=== PATIENT | female | born 1945 | race Caucasian/White ===

== ENCOUNTER 2021-06-29 05:40 | Day surgery (SDC) | payer MEDICARE, OTHER ==
[~2021-06-29] VITALS: Ht 166.4 cm; Wt 73.5 kg
[2021-06-29 06:22] VITALS: BP 144/79
[2021-06-29] MEDS ORDERED: ATOR10TA9 PO (06:28)
[2021-06-29] MEDS ORDERED: CHLORHEXIDINE 15 ML UDC PO ONE (06:30)
[2021-06-29] MEDS ORDERED: LACTATED RINGERS 1,000 ML IV SCH (06:30)
[2021-06-29 06:44] LABS: BASOPHILS % (AUTO) 1 % (0-1); EOSINOPHILS % (AUTO) 1 % (1-7); LYMPHOCYTES % (AUTO) 44 % (22-44); MEAN CORPUSCULAR HEMOGLOBIN 31.9 pg (27.0-34.8); MEAN PLATELET VOLUME 7.3 fL (7.4-10.4); MONOCYTES % (AUTO) 11 % (2-9); NEUTROPHILS % (AUTO) 43 % (42-75); PLATELET COUNT 309 x10^3/uL (130-400); RED BLOOD COUNT 4.42 x10^6/uL (3.82-5.3); RED CELL DISTRIBUTION WIDTH 12.8 % (9.6-15.2)
[2021-06-29] MEDS ORDERED: OXYTOCIN 10 UNITS/ML, 1ML ONE ×2 (06:47)
[2021-06-29] MEDS ORDERED: METHYLERGONOVINE 0.2 MG/ML IM ONE (06:48)
[2021-06-29] MEDS ORDERED: MISOPROSTOL 200 MCG TABLET ONE (06:48)
[2021-06-29] MEDS ORDERED: SILVER NITRATE STICK TP ONE (06:49)
[2021-06-29 06:56] LABS: INTERNATIONAL NORMALIZED RATIO 1.02 (0.93-1.1); PROTHROMBIN TIME 10.9 Seconds (9.6-11.5)
[2021-06-29 06:57] LABS: ALBUMIN 3.7 g/dL (3.4-5.0); ANION GAP 7 mmol/L (5-15); CALCIUM 8.3 mg/dL (8.5-10.1); CHLORIDE 107 mmol/L (98-107); CREATININE 0.75 mg/dL (0.55-1.02)
[2021-06-29 07:05] LABS: ALANINE AMINOTRANSFERASE 50 U/L (12-78); ALKALINE PHOSPHATASE 98 U/L (45-117); BILIRUBIN,TOTAL 0.7 mg/dL (0.2-1.0); TOTAL PROTEIN 7.3 g/dL (6.4-8.2)
[2021-06-29] MEDS ORDERED: FENTANYL PF 100 MCG/2ML ONE ×3 (07:34→08:53)
[2021-06-29] MEDS ORDERED: LORazepam 2 MG/ML, 1ML IVPush PRN (08:00)
[2021-06-29] MEDS ORDERED: METHOCARBAMOL 1,000 MG in DEXTROSE 5% 100 ML IV PRN (08:00)
[2021-06-29] MEDS ORDERED: FENTANYL PF 100 MCG/2ML IV PRN (08:00)
[2021-06-29] MEDS ORDERED: hydrALAzine 20 MG/ML, 1ML IV PRN (08:00)
[2021-06-29] MEDS ORDERED: PROMETHAZINE 25 MG/ML, 1ML IVPush PRN (08:00)
[2021-06-29] MEDS ORDERED: ACETAMINOPHEN 325 MG TABLET PO PRN (08:00)
[2021-06-29] MEDS ORDERED: PROMETHAZINE 25 MG SUPP PR PRN (08:00)
[2021-06-29] MEDS ORDERED: HYDROmorphone 1 MG/ML, 1ML INJ IVPush PRN (08:00)
[2021-06-29] MEDS ORDERED: LABETALOL 5MG/ML, 20ML IV PRN (08:00)
[2021-06-29] MEDS ORDERED: ONDANSETRON 2MG/ML, 2ML IVPush PRN (08:00)
[2021-06-29] MEDS ORDERED: OXYcodone 5 MG/5 ML ORAL.SOL UDC PO PRN (08:00)
[2021-06-29] MEDS ORDERED: DEXAMETHASONE 4 MG/ML, 1ML ONE (08:21)
[2021-06-29] MEDS ORDERED: CEFAZOLIN 1,000 MG ONE (08:21)
[2021-06-29] MEDS ORDERED: ONDANSETRON 2MG/ML, 2ML ONE (08:21)
[2021-06-29] MEDS ORDERED: PROPOFOL 10 MG/ML, 20ML ONE (08:21)
[2021-06-29] MEDS ORDERED: ACETAMINOPHEN 650 MG/20.3 ML UDC ONE (08:33)
[2021-06-29] MEDS ORDERED: OXYcodone 5 MG/5 ML ORAL.SOL UDC ONE (08:33)
== END 2021-06-29 09:42 | disposition home or self-care (01) ==
LOC: OUT 05:40
PROVIDERS: ATTEND Obstetrics & Gynecology
DX: N95.0 Postmenopausal bleeding (principal); N85.9 Noninflammatory disorder of uterus, unspecified; N84.1 Polyp of cervix uteri; E78.5 Hyperlipidemia, unspecified; M79.7 Fibromyalgia; Z79.899 Other long term (current) drug therapy; Z87.891 Personal history of nicotine dependence; Z90.49 Acquired absence of other specified parts of digestive tract; Z80.8 Family history of malignant neoplasm of other organs or systems
CPT/HCPCS: 36415; 58120; 71045; 80053; 85025; 85610; 85730; 86850; 86900; 88305; 93005; J0690; J1100; J2405; J2590; J2704; J3010; J2210